=== PATIENT | male | born 1990 | race Caucasian/White ===

== ENCOUNTER 2022-07-15 16:54 | Emergency (ER) | payer SELFPAY ==
[2022-07-15] MEDS ORDERED: Mupirocin Oint 22 GM Tube TOP ONE (17:53)
== END 2022-07-15 18:23 | disposition home or self-care (01) ==
LOC: JD.ED 16:54
DX: L01.03 Bullous impetigo (principal)
CPT/HCPCS: 87070; 87075; 87205; 99283; A9270